=== PATIENT | female | born 1960 | race African-American/Black ===

== ENCOUNTER 2018-06-21 07:56 | Emergency (ER) | payer OTHER ==
--- NOTE | 2018-06-21 08:04 | PDOC ---
History of Present Illness - General Stated Complaint: THROAT PAIN Time Seen by Provider: 06/21/18 08:04 - History of Present Illness Initial Comments: 06/21/18 08:04 Ms. Benitez is a 58 yo female w/ pmh of HTN, GERD, and DM who presents for evaluation of 2-3 day history of left sided chest pain. Patient additionally reports difficulty sleeping last night and that she woke up from a dream with epigastric pain and throat pain. Patient has previously had episodes of palpitations for which she has been evaluated with a holter monitor with no acute findings. The patient denies shortness of breath, headache and dizziness. Denies fever, chills, nausea, vomit, diarrhea and constipation. Denies dysuria, frequency, urgency and hematuria. Allergies: NKDA Past History - Past Medical History Allergies/Adverse Reactions: Allergies Allergy/AdvReac Type Severity Reaction Status Date / Time No Known Allergies Allergy Verified 06/21/18 07:58 Home Medications: Ambulatory Orders Amlodipine Besylate 40 mg PO DAILY 06/21/18 Hydrochlorothiazide [Hctz -] 12.5 mg PO DAILY 06/21/18 Lisinopril [Prinivil] 20 mg PO DAILY 06/21/18 Review of Systems - Review of Systems Comments:: 06/21/18 08:04 GENERAL/CONSTITUTIONAL: No fever or chills. No weakness. HEAD, EYES, EARS, NOSE AND THROAT: +Throat pain x1 day. No change in vision. No ear pain or discharge. CARDIOVASCULAR: +Left sided constant chest pain. No shortness of breath RESPIRATORY: No cough, wheezing, or hemoptysis. GASTROINTESTINAL: +Epigastric pain as described. No nausea, vomiting, diarrhea or constipation. GENITOURINARY: No dysuria, frequency, or change in urination. MUSCULOSKELETAL: No joint or muscle swelling or pain. No neck or back pain. SKIN: No rash NEUROLOGIC: No headache, vertigo, loss of consciousness, or change in strength/ sensation. ENDOCRINE: No increased thirst. No abnormal weight change HEMATOLOGIC/LYMPHATIC: No anemia, easy bleeding, or history of blood clots. ALLERGIC/IMMUNOLOGIC: No hives or skin allergy. *Physical Exam - Physical Exam Comments: 06/21/18 08:05 GENERAL: Awake, alert, and fully oriented, in no acute distress HEAD: No signs of trauma, normocephalic, atraumatic EYES: PERRLA, EOMI, sclera anicteric, conjunctiva clear ENT: Auricles normal inspection, hearing grossly normal, nares patent, oropharynx clear without exudates. Moist mucosa NECK: Normal ROM, supple, no lymphadenopathy, JVD, or masses LUNGS: No distress, speaks full sentences, clear to auscultation bilaterally HEART: +Mild tachycardia. Regular rhythm, normal S1 and S2, no murmurs, rubs or gallops, peripheral pulses normal and equal bilaterally. ABDOMEN: +Epigastric TTP. Soft, normoactive bowel sounds. No guarding, no rebound. No masses EXTREMITIES: Normal inspection, Normal range of motion, no edema. No clubbing or cyanosis. NEUROLOGICAL: Cranial nerves II through XII grossly intact. Normal speech, normal gait, no focal sensorimotor deficits SKIN: Warm, Dry, normal turgor, no rashes or lesions noted. ED Treatment Course - LABORATORY CBC & Chemistry Diagram: 06/21/18 08:40 06/21/18 08:40 Medical Decision Making - Medical Decision Making 06/21/18 08:37 Ms. Benitez is a 58 yo female w/ pmh as described who presents for evaluation of chest pain complicated by epigastric and throat pain concerning for GERD vs. ACS. Will evaluate with monitor/EKG/cardiac labs and medicate for symptomatic relief. 06/21/18 08:39 EKG mildly tachy at rate of 97, otherwise regular rhythm, normal access, normal interval, no ST elevations or depressions - normal EKG. 06/21/18 10:43 Patient reporting relief from symptoms following pepcid and maalox. Suspect GERD as etiology of symptoms. Labs grossly wnl as below. Discharging to home w/ instructions to f/u w/ PCP for further evaluation. Patient verbalized understanding and agreement and will comply. Laboratory Results - last 24 hr 06/21/18 06/21/18 06/21/18 08:40 08:40 08:40 WBC 4.8 RBC 4.30 Hgb 13.1 Hct 39.1 MCV 90.9 MCH 30.5 MCHC 33.6 RDW 12.6 Plt Count 210 MPV 10.5 Absolute Neuts (auto) 2.7 Neutrophils % 57.4 Lymphocytes % 34.1 Monocytes % 7.4 Eosinophils % 0.8 Basophils % 0.3 Nucleated RBC % 0 PT with INR 11.40 INR 1.01 Sodium 144 Potassium 3.6 Chloride 107 Carbon Dioxide 27 Anion Gap 10 BUN 11 Creatinine 0.9 Creat Clearance w eGFR > 60 Random Glucose 158 H Calcium 9.4 Total Bilirubin 0.8 AST 15 ALT 24 Alkaline Phosphatase 74 Creatine Kinase 81 Troponin I < 0.02 Total Protein 8.1 Albumin 4.0 Urine Color Urine Appearance Urine pH Ur Specific Greenback Urine Protein Urine Glucose (UA) Urine Ketones Urine Blood Urine Nitrite Urine Bilirubin Urine Urobilinogen Ur Leukocyte Esterase 06/21/18 09:02 WBC RBC Hgb Hct MCV MCH MCHC RDW Plt Count MPV Absolute Neuts (auto) Neutrophils % Lymphocytes % Monocytes % Eosinophils % Basophils % Nucleated RBC % PT with INR INR Sodium Potassium Chloride Carbon Dioxide Anion Gap BUN Creatinine Creat Clearance w eGFR Random Glucose Calcium Total Bilirubin AST ALT Alkaline Phosphatase Creatine Kinase Troponin I Total Protein Albumin Urine Color Ltyellow Urine Appearance Slcloudy Urine pH 8.0 Ur Specific Greenback 1.005 Urine Protein Negative Urine Glucose (UA) Negative Urine Ketones Negative Urine Blood Negative Urine Nitrite Negative Urine Bilirubin Negative Urine Urobilinogen Negative Ur Leukocyte Esterase Negative *DC/Admit/Observation/Transfer Diagnosis at time of Disposition: Atypical chest pain GERD (gastroesophageal reflux disease) Qualifiers: Esophagitis presence: esophagitis presence not specified Qualified Code(s): K21.9 - Gastro-esophageal reflux disease without esophagitis - Discharge Dispostion Disposition: HOME - Referrals - Patient Instructions Printed Discharge Instructions: DI for Gastroesophageal Reflux Disease (GERD), DI for Atypical Chest Pain Additional Instructions: You were evaluated today in the ER for your chest and epigastric pain. No acute findings were seen at this time and your pain improved with treatment of reflux. Please follow-up with primary care provider in 1-2 days for further evaluation. Return to ER if any return of pain, fever, chills, or other concerning symptoms. - Post Discharge Activity
[2018-06-21 08:06] VITALS: BMI 23.7
--- NOTE | 2018-06-21 08:24 | PDOC ---
Attending Attestation - Resident Resident Name: Valdez Munoz - ED Attending Attestation I have performed the following: I have examined & evaluated the patient, The case was reviewed & discussed with the resident, I agree w/resident's findings & plan, Exceptions are as noted - HPI HPI: 06/21/18 10:49 58 yo female w/ pmh of HTN, GERD, and DM who presents for evaluation of 2-3 day history of left sided chest pain. Pain is nonexertional intermittent no exacerbating or alleviating factors no associated dizziness lightheadedness nausea. Patient has had this pain intermittently over the last 2 years has seen cardiology for and has had a catheterization in the past which was normal per the patient She has recently followed up with gastroenterology for further evaluation of this had a normal endoscopy and is scheduled next week for a ultrasound ROS: A complete review of 10 out of 10 review of systems is taken and is negative apart from what is previously mentioned below and in the HPI. - Physicial Exam PE: 06/21/18 10:50 Vitals: Triage Vital signs reviewed General Appearance: no acute distress, well nourished well developed, Head: Atraumatic, Neck: Supple;No Nucal rigidity Chest Wall: Nontender Cardiac: Regular rate and rhythym, no murmurs, no rubs, no gallops, Lungs: Clear to auscultation bilateral, good air movement bilaterally, Abdomen: Soft, non distended, normal bowel sounds, non tender to palpation Extremities: Full range of motion to all extremities, no cyanosis, clubbing, or edema Skin: Warm and dry, no rashes or lesions, no rash, no petechiae - Medical Decision Making 06/21/18 10:51 Atypical chest discomfort chronic no acute changes heart score to EKG nonischemic troponin negative Patient has follow-up. Feels better after Pepcid Sitting comfortably in the emergency department eating a sandwich. Findings, need for follow-up and strict return instructions discussed with patient. Heart Score/ECG Review - History History: Slightly suspicious - Electrocardiogram EKG: Normal - Age Age: 45-65 - Risk Factors Risk Factors Heart Score: Yes Hx Hypertension, Yes Hx Diabetes Based on the list above the patient has:: 1-2 risk factors - Troponin Troponin: </= normal limit - Score Heart Score - Total: 2 - ECG Impressions Comment:: 06/21/18 10:52 EKG performed at 8:10 AM. Demonstrates normal sinus rhythm MO interval 2 or 2, QRS 76, QTC 429. No ST elevations. No T-wave inversions. Interpreted by me.
[2018-06-21] MEDS ORDERED: FAMOTIDINE 20 MG/50 ML IVPB 20 MG/50 ML MG IVPB ONE ×2 (08:30→08:51)
[2018-06-21] MEDS ORDERED: MAG HYDROX/AL HYDROX/SIMETH 30 ML UNIT-DOSE CUP PO ONE (08:30)
[2018-06-21 08:47] LABS: BASO % 0.3 % (0-2.0); EOS % 0.8 % (0-4.5); HEMATOCRIT 39.1 % (32.4-45.2); HEMOGLOBIN 13.1 GM/dL (10.7-15.3); LYMPH % 34.1 % (8-40); MCH 30.5 pg (25.7-33.7); MCHC 33.6 g/dl (32.0-36.0); MEAN CELL VOLUME 90.9 fl (80-96); MEAN PLT VOLUME 10.5 fl (7.5-11.1); MONO % 7.4 % (3.8-10.2); NEUT % 57.4 % (42.8-82.8); PLATELET COUNT 210 K/MM3 (134-434); RDW 12.6 % (11.6-15.6); WHITE BLOOD COUNT 4.8 K/mm3 (4.0-10.0)
[2018-06-21] MEDS ORDERED: MAG HYDROX/AL HYDROX/SIMETH 30 ML UNIT-DOSE CUP ONE (08:50)
[2018-06-21 09:08] LABS: INR 1.01 (0.83-1.09); PROTHROMBIN TIME (PATIENT) 11.4 SEC (9.7-13.0)
[2018-06-21 09:16] LABS: URINE APPEARANCE SLCLOUDY; URINE BILIRUBIN NEGATIVE (<2.0 mg/dL); URINE COLOR LTYELLOW; URINE GLUCOSE (UA) NEGATIVE (NEGATIVE); URINE KETONE NEGATIVE (NEGATIVE); URINE LEUK ESTERASE NEGATIVE (NEGATIVE); URINE NITRITE NEGATIVE (NEGATIVE); URINE PROTEIN NEGATIVE (NEGATIVE); URINE UROBILINOGEN NEGATIVE mg/dL (0.2-1.0)
[2018-06-21 09:17] LABS: ANION GAP 10 MMOL/L (8-16); BILIRUBIN,TOTAL 0.8 mg/dL (0.2-1.0); BLOOD UREA NITROGEN 11 mg/dL (7-18); CALCIUM 9.4 mg/dL (8.5-10.1); CHLORIDE 107 mmol/L (98-107); CO2 27 mmol/L (21-32); CREATININE 0.9 mg/dL (0.55-1.02); GLUCOSE,RANDOM 158 mg/dL (74-106); POTASSIUM 3.6 mmol/L (3.5-5.1); SGOT/AST 15 U/L (15-37); SGPT/ALT 24 U/L (12-78); SODIUM 144 mmol/L (136-145); TOT PROT 8.1 g/dl (6.4-8.2)
[2018-06-21 09:19] LABS: ALK PHOS 74 U/L (45-117)
[2018-06-21 11:03] VITALS: BP 129/84; PULSE 79; TEMP 98.6
--- NOTE | 2018-06-21 13:43 | EKG ---
Test Reason : Blood Pressure : / mmHG Vent. Rate : 097 BPM Atrial Rate : 097 BPM P-R Int : 202 ms QRS Dur : 076 ms QT Int : 338 ms P-R-T Axes : 053 055 053 degrees QTc Int : 429 ms NORMAL SINUS RHYTHM POSSIBLE LEFT ATRIAL ENLARGEMENT NONSPECIFIC T WAVE ABNORMALITY ABNORMAL ECG NO PREVIOUS ECGS AVAILABLE Confirmed by MICHAEL NOYOLA MD ([id number]) on 06/21/2018 1:43:18 PM Referred By: Confirmed By:MICHAEL NOYOLA MD
== END 2018-06-21 11:03 | disposition home or self-care (01) ==
LOC: JER 07:56
PROC: 3E033GC Introduction of Other Therapeutic Substance into Peripheral Vein, Percutaneous Approach (ICD-10-PCS; principal; 2018-06-21)
DX: K21.9 Gastro-esophageal reflux disease without esophagitis (principal); R07.89 Other chest pain; I10 Essential (primary) hypertension
CPT/HCPCS: 36415; 71046-TC-FY; 80053; 81003; 82550; 84484; 85025; 85610; 87086; 93005; 93010; 99284-25

== ENCOUNTER 2018-07-20 08:09 | Day surgery (SDC) | payer OTHER ==
[2018-07-19 15:02] VITALS: BMI 23.7
[~2018-07-20 08:09] MED LIST: BUPIVACAINE HCL/PF 0.5% (5MG/ML) 10 ML VIAL IJ ONE; ceFAZolin SODIUM 1 GM VIAL IVPB ONE
[2018-07-20] MEDS ORDERED: BUPIVACAINE HCL/PF 0.5% (5MG/ML) 10 ML VIAL ONE (09:00)
--- NOTE | 2018-07-20 10:30 | HP ---
History & Physical Update - History History: No Change - Physical Physical: No Change - Assessment Assessment: No Change - Plan Plan: No Change (H & P done on 07/12/18)
[2018-07-20] MEDS ORDERED: MIDAZOLAM HCL 2 MG/2 ML SINGLE DOSE VIAL ONE (10:38)
[2018-07-20] MEDS ORDERED: LIDOCAINE HCL/PF 2% SDV 5ML VIAL ONE (10:53)
[2018-07-20] MEDS ORDERED: fentaNYL CITRATE 250 MCG/5 ML VIAL ONE (10:54)
[2018-07-20] MEDS ORDERED: ROCURONIUM BROMIDE 50 MG/5 ML VIAL ONE (10:55)
[2018-07-20] MEDS ORDERED: ESMOLOL HCL 100,000 MCG/10 ML VIAL ONE (11:11)
[2018-07-20] MEDS ORDERED: ceFAZolin SODIUM 1 GM VIAL IVPB ONE (11:12)
[2018-07-20] MEDS ORDERED: BUPIVACAINE HCL/PF 0.5% (5MG/ML) 10 ML VIAL IJ ONE ×2 (11:19)
[2018-07-20] MEDS ORDERED: ACETAMINOPHEN INJECTION 100 ML IVPB ONE (11:44)
[2018-07-20] MEDS ORDERED: ACETAMINOPHEN 1000 MG/100 ML VIAL (NON FORMULARY) IVPB ONE (11:46)
[2018-07-20] MEDS ORDERED: NEOSTIGMINE METHYLSULFATE 0.5 MG/ML - 10 ML MDV ONE (11:47)
[2018-07-20] MEDS ORDERED: GLYCOPYRROLATE 0.2 MG/1 ML VIAL ONE (11:48)
[2018-07-20] MEDS ORDERED: KETOROLAC TROMETHAMINE 30 MG/1 ML VIAL ONE (11:54)
--- NOTE | 2018-07-20 12:15 | OP ---
Operative Note - Note: Operative Date: 07/20/18 Pre-Operative Diagnosis: Chronic cholecystitis Operation: Laparoscopic cholecystectomy, JOSE ANTONIO Findings: Intra-abdominal adhesions and GB with small stones Post-Operative Diagnosis: Other (Intra-abdominal adhesions) Surgeon: Helder Santos Public Services Librarian: Jimena Craig Anesthesia: General Specimens Removed: GB Estimated Blood Loss (mls): 5 Operative Report Dictated: Yes
--- NOTE | 2018-07-20 12:45 | SURG ---
Surgery Tube Man Note Tube Man: Jimena Craig PA-C (Suzy) Date of Service: 07/20/18 Diagnosis: Chronic cholecystitis Procedure: Laparoscopic cholecystectomy, lysis of adhesions I was present for the entirety of the operative procedure. For further detail, please refer to operative report. Visit type - Case Type Case Type: Scheduled - Emergency Emergency Visit: No - New patient This patient is new to me today: Yes Date on this admission: 07/20/18 - Critical Care Critical Care patient: No
[2018-07-20] MEDS ORDERED: PROMETHAZINE HCL 25 MG/1 ML VIAL IVPB PRN (12:46)
[2018-07-20] MEDS ORDERED: ONDANSETRON 4 MG/2 ML VIAL IVPUSH PRN (12:46)
[2018-07-20] MEDS ORDERED: oxyCODONE HCL 5 MG TABLET PO PRN ×2 (12:46)
[2018-07-20] MEDS ORDERED: LACTATED RINGERS SOLUTION 1,000 ML IV SCH (13:00)
[2018-07-20] MEDS ORDERED: ONDANSETRON 4 MG/2 ML VIAL ONE (14:27)
--- NOTE | 2018-07-20 16:33 | OP ---
DATE OF OPERATION: 07/20/2018 LOCATION: Ambulatory surgery. PROCEDURE: Laparoscopic cholecystectomy and lysis of adhesions. PREOPERATIVE DIAGNOSIS: Chronic cholecystitis with cholelithiasis. POSTOPERATIVE DIAGNOSIS: Chronic cholecystitis with cholelithiasis and intraabdominal adhesions. SURGEON: Helder Santos M.D. PIT RECORDER: Sameer Shanks ANESTHESIA: General endotracheal anesthesia. FINDINGS AND PROCEDURE: This is a 58-year-old female who presents with chronic right upper quadrant pain radiating to the back which initially she was treated for H. pylori infection; however, the pain persisted, so patient an ultrasound was done and revealed gallbladder stones versus sludge. So patient was advised removal of the gallbladder, and consent was obtained after discussing the risks, benefits, and alternatives to the procedure. Patient was brought to the operating room and placed in supine position. General endotracheal anesthesia was then administered. The abdomen was then prepped and draped in the usual sterile fashion; using 0.5% Marcaine local anesthesia was administered to the proposed incision sites. The peritoneal cavity was entered using the Optiview technique via 5-mm umbilical incision. Using a 5-mm, 0-degree scope, inserted in 5-mm Optiview port. Pneumoperitoneum was established. The patient was then placed in reverse Trendelenburg, left side down position. An 11-mm subxiphoid port was inserted and two 5-mm subcostal ports were also inserted under direct vision. Dense adhesions of the liver to the posterior abdominal wall were noted. These were taken down using the hook dissector connected to monopolar cautery. Gallbladder fundus was identified and grasped and retracted superiorly. The infundibulum was identified, and at this point the common bile duct was noted to be adherent to the proximal gallbladder wall. Careful dissection using combined dissector and peanut dissector was done until the common bile duct was clearly away from the gallbladder wall and exposing the triangle of Calot. Cystic duct and cystic artery were identified and were carefully isolated using the hook dissector. Critical view of safety was established by making a window behind the cystic artery, gallbladder, wall, and liver bed with common bile duct clearly visualized medial to the critical view of safety. The cystic duct was then clipped at 3 points followed by transection 2 branches of the cystic artery were also clipped at 3 points followed by transection leaving 2 clips at the branches of the cystic artery. The gallbladder was dissected from its bed in antegrade fashion using the hook dissector. After this was completed, the gallbladder was placed in endobag and extracted via the subxiphoid incision. The gallbladder bed was carefully inspected and was noted to be free of active bleeding. The pneumoperitoneum was evacuated, and the ports were removed. Wounds were closed with subcuticular Biosyn 4 sutures reinforced with Dermabond. The patient was successfully extubated and transferred to the post anesthesia care unit in satisfactory condition. Estimated blood loss was about 5 mL. Wound class clean, contaminated. The patient received 1 g Ancef prior to the procedure. Penelope [id number]
[2018-07-20 17:57] VITALS: BP 120/76; PULSE 90; TEMP 97.8
--- NOTE | 2018-07-23 16:43 | PATH ---
Surgical Pathology Report Patient Name: DAE KASPER [facility]. Rec. #: [id number] /Age/Gender: 1960 (Age: 58) / F Account: [id number] Location: [facility] SUR[facility]ICAL Taken: 07/20/2018 Received: 07/20/2018 Reported: 07/23/2018 Physicians: Helder Santos M.D. Specimen(s) Received GALLBLADDER Clinical History Chronic cholecystitis Final Diagnosis GALLBLADDER, CHOLECYSTECTOMY: CHRONIC CHOLECYSTITIS AND CHOLELITHIASIS. Electronically Signed Francesca Hdez M.D. Gross Description Received in formalin, labeled "gallbladder," is a 7.5 x 2.6 x 2.4 cm. gallbladder with a 0.2 cm. in length portion of cystic duct attached. The outer surface is jung-barker and varies from smooth to shaggy. The lumen contains green, tenacious bile as well as multiple black, irregular choleliths ranging from 0.4-0.5 cm in greatest dimension. The mucosa is brown with focal erosions. The wall of the gallbladder measures 0.1 cm. in thickness. Automation/Controls Manager sections are submitted in one cassette. DL/07/20/2018 saudi07/20/2018
== END 2018-07-20 17:30 | disposition home or self-care (01) ==
LOC: JASU-SURG 08:09
PROVIDERS: ATTEND Surgery
PROC: 0FT44ZZ Resection of Gallbladder, Percutaneous Endoscopic Approach (ICD-10-PCS; principal; 2018-07-20 10:00)
DX: K80.10 Calculus of gallbladder with chronic cholecystitis without obstruction (principal); K66.0 Peritoneal adhesions (postprocedural) (postinfection)
CPT/HCPCS: 88304-TC; 94760; J0131

== ENCOUNTER 2018-07-22 09:04 | Emergency (ER) | payer OTHER ==
[2018-07-22 09:16] VITALS: BMI 23.7
[2018-07-22] MEDS ORDERED: SODIUM CHLORIDE 0.9% 500 ML INFUS.BAG IV ONE (10:32)
[2018-07-22] MEDS ORDERED: ACETAMINOPHEN 1000 MG/100 ML VIAL (NON FORMULARY) IVPB ONE (10:32)
[2018-07-22] MEDS ORDERED: ONDANSETRON 4 MG/2 ML VIAL IVPUSH ONE (10:38)
--- NOTE | 2018-07-22 10:40 | PDOC ---
History of Present Illness - General Chief Complaint: Pain, Acute Stated Complaint: ABDOMINA PAIN/BACK PAIN Time Seen by Provider: 07/22/18 09:36 History Source: Patient Exam Limitations: No Limitations - History of Present Illness Travel History: No Initial Comments: Leona is a 58 yo female w/ a pmh of recent Lap pretty 2 days prior, 2 abdominal operations 8 and 9 years ago (partial hysterectomy, then oopherectomy), HTN, GERD, and DM who presents to the ED with abdominal distension, nausea, vomiting (NBNB) and not having been able to make a bowel movement or pass any flatus since her surgery. She has been taking 1-2 percocets a day for pain control, but it has not been sufficient. She also reports having some mild throat discomfort. She denies chest pain, shortness of breath, difficulty breathing, fevers, chills , infections, or any urinary complaints. PCP: Roseann Nguyen Allergies: NKA, NKDA Social Hx: Denies using cigarettes, alcohol, or other illicit drugs. Past History - Past Medical History Allergies/Adverse Reactions: Allergies Allergy/AdvReac Type Severity Reaction Status Date / Time No Known Allergies Allergy Verified 07/22/18 09:11 Home Medications: Ambulatory Orders Amlodipine Besylate 40 mg PO DAILY 06/21/18 Hydrochlorothiazide [Hctz -] 12.5 mg PO DAILY 06/21/18 Lisinopril [Prinivil] 20 mg PO DAILY 06/21/18 Oxycodone HCl/Acetaminophen [Percocet 5-325 mg Tablet] 1 - 2 tab PO Q6H #12 tab MDD 5 07/20/18 Enema Bag, Disposable [Enema Bag] 1 each RC PRN #7 each 07/22/18 Ondansetron HCl [Zofran] 4 mg PO PRN #14 tablet 07/22/18 COPD: No Diabetes: Yes (no meds) HTN: Yes - Immunization History Immunization Up to Date: No - Suicide/Smoking/Psychosocial Hx Smoking History: Never smoked Have you smoked in the past 12 months: No Hx Alcohol Use: No Drug/Substance Use Hx: No Substance Use Type: None Hx Substance Use Treatment: No Review of Systems - Review of Systems Able to Perform ROS?: Yes Is the patient limited Slovak proficient: No Constitutional: Yes: Loss of Appetite. No: Chills, Diaphoresis, Fever HEENTM: Yes: Throat Pain. No: Blurred Vision Respiratory: No: Cough, Shortness of Breath, Productive cough Cardiac (ROS): No: Chest Pain, Lightheadedness, Palpitations ABD/GI: Yes: Abdominal Distended, Constipated, Nausea, Poor Appetite, Vomiting. No: Diarrhea : No: Burning, Dysuria, Discharge, Frequency Musculoskeletal: No: Back Pain, Joint Swelling, Muscle Pain Integumentary: No: Bruising, Change in Color Neurological: No: Headache, Seizure, Weakness Psychiatric: No: Anxiety, Depression Endocrine: No: Excessive Sweating, Intolerance to Cold, Intolerance to Heat Hematologic/Lymphatic: No: Anemia, Blood Clots, Easy Bleeding *Physical Exam - Vital Signs Last Vital Signs Temp Pulse Resp BP Pulse Ox 98.8 F 90 18 129/83 98 07/22/18 09:11 07/22/18 09:11 07/22/18 09:11 07/22/18 09:11 07/22/18 09:11 - Physical Exam General Appearance: Yes: Nourished, Appropriately Dressed. No: Apparent Distress HEENT: positive: EOMI, LING, Normal ENT Inspection, Normal Voice, Pharynx Normal Neck: positive: Trachea midline, Supple. negative: Decreased range of motion, Lymphadenopathy (R), Lymphadenopathy (L) Respiratory/Chest: positive: Lungs Clear, Normal Breath Sounds. negative: Respiratory Distress, Crackles, Rales, Rhonchi Cardiovascular: positive: Regular Rhythm, Regular Rate, S1, S2. negative: Edema , JVD, Murmur Vascular Pulses: Dorsalis-Pedis (R): 2+, Doralis-Pedis (L): 2+ Gastrointestinal/Abdominal: positive: Soft, Increased Bowel Sounds, Distended. negative: Decreased BS, Guarding, Rebound Lymphatic: negative: Adenopathy Musculoskeletal: positive: Normal Inspection. negative: CVA Tenderness, Decreased Range of Motion, Vertebral Tenderness Extremity: positive: Normal Capillary Refill, Normal Inspection, Normal Range of Motion Integumentary: positive: Normal Color, Dry, Warm. negative: Jaundice, Rash Neurologic: positive: pulp roller II-XII NML intact, Fully Oriented, Alert, Normal Mood/ Affect ED Treatment Course - LABORATORY CBC & Chemistry Diagram: 07/22/18 11:30 07/22/18 11:30 - RADIOLOGY Radiology Studies Ordered: Category Date Time Status ABDOMEN FLAT & UPRIGHT [RAD] Stat Radiology 07/22/18 10:31 Ordered Medical Decision Making - Medical Decision Making Leona is a 58 yo female w/ a pmh of recent Lap pretty 2 days prior, 2 abdominal operations 8 and 9 years ago (partial hysterectomy, then oopherectomy), HTN, GERD, and DM who presents to the ED with abdominal distension, nausea, vomiting (NBNB) and not having been able to make a bowel movement or pass any flatus since her surgery. She has been taking 1-2 percocets a day for pain control, but it has not been sufficient. -percs can be causing constipation. DD includes but not limited to: SBO vs paralytic ileus, postop infection, gastroenteritis, constipation, ACS, pancreatitis. Plan: Cbc, Cmp, lactic, lipase, trop, ua/uc, Ekg, CTAP, IVF-NS, zofran, Acetaminophen, re-assess. Cbc showed no elevated WBC CMP showed low potassium - we repleted. other labs unremarkable. CTAP showed no SBO but likely paralytic ileus. Patient felt significantly better after meds, fluids, and was requesting to have food so she could eat. PO challenge succesful. Consulted her surgeon Dr. Santos who requested her to get a fleet enema. VS stable, patient feels well and would like to leave the ED. Will discharge with strict return precautions. *DC/Admit/Observation/Transfer Diagnosis at time of Disposition: Paralytic ileus - Discharge Dispostion Disposition: HOME Condition at time of disposition: Stable Decision to Admit order: No - Prescriptions Prescriptions: Enema Bag, Disposable [Enema Bag] 1 each RC PRN #7 each Ondansetron HCl [Zofran] 4 mg PO PRN #14 tablet - Referrals Referrals: Roseann Nguyen MD [Primary Care Provider] - - Patient Instructions Printed Discharge Instructions: DI for Ileus Additional Instructions: You came into the ER with nausea vomiting and not having passed a bowel movement in the past 2 days. We gave you some IV hydration, anti nausea meds. Your Cat Scan showed that your bowels is not obstructed. We believe you have what is called a paralytic ileus - see attached handout for further explanation. We are sending an enema to your pharmacy. please go pick it up. We are also sending zofran to your pharmacy to help with nausea. Please make sure to pick it up. Please come back to the ER if your abdominal pain worsens, your develop a high fever, start vomiting or have any other new or worsening concerns. Thank you for coming to the [facility] ER. We hope you feel better soon! Print Language: KAZAKH - Post Discharge Activity
[2018-07-22] MEDS ORDERED: ONDANSETRON 4 MG/2 ML VIAL ONE (10:57)
[2018-07-22] MEDS ORDERED: ACETAMINOPHEN INJECTION 100 ML IVPB ONE (10:57)
--- NOTE | 2018-07-22 11:04 | PDOC ---
Attending Attestation - Resident Resident Name: Yunior Hudson - ED Attending Attestation I have performed the following: I have examined & evaluated the patient, The case was reviewed & discussed with the resident, I agree w/resident's findings & plan - HPI HPI: 07/22/18 13:52 Ms. Benitez is a 58 yo female w/ pmh of HTN, GERD, and DM, recent chronic cholecystitis s/p cholecystectomy on 07/20/18, now with nausea, vomiting and Abdominal pain for the past 2 days. She reports that she has had 2 episodes of vomiting, nonbloody and nonbilious. She notes that her last bowel movement occured prior to her surgery and has not had a bowel movement for 2 days. + passing gas. She describes her abdominal pain as localized near her epigastric region, 5/10, over the incisional scars, ranging from mild to moderate. She reports a 5/10 in severity. The patient denies chest pain, shortness of breath, headache and dizziness. Denies fever, chills, diarrhea. Allergies: None Past surgical history: Cholecystectomy Social History: No alcohol, tobacco or drug use reported 07/22/18 13:57 - Physicial Exam PE: 07/22/18 13:52 NAD, well appearing, MMM, nl conjunctiva, anicteric; neck supple. lungs clear, RRR, abdomen soft and (+) tender at incisional sites in RUQ/epigastrium, (+) Anterior laproscopic surgical scars, no purulence. No rebound or guarding, no CVAT. BELTRAN x4, no focal neuro deficits. No peripheral edema. normal color for ethnicity, WWP. - Medical Decision Making 07/22/18 13:53 I, Sandee Garcia MD, attest that this document has been prepared under my direction and personally reviewed by me in its entirety. I further attest, that it accurately reflects all work, treatment, procedures and medical decision -making performed by me. Ms. Benitez is a 58 yo female w/ pmh of HTN, GERD, and DM, recent chronic cholecystitis presenting with post op AP, over incisional scars, n/v and constipation x 2 days, post op for uncomplicated lap pretty with Dr Santos on . +passing gas. DDx. post op ileus, perf viscus, intra abdominal injury/infection, abscess, abdominal wall abscess, PUD, GERD, esophageal spasm, SBO, medication side effect , electrolyte/metabolic derangements, pancreatitis, hepatitis. dehydration. UTI vitals wnl. labs and lytes wnl, borderline low potassium 3.4. LFTs/lipase normal. UA neg for ketones or infection trop neg, EKG nonischemic, nonspecific T wave abnormalities, similar to prior episodes given IVF, analgesia and antiemetics. pepcid IV. CT a/p: ileus, no obstruction or hernia. free air in setting of recent lap pretty surgery and post op course, otherwise abdomen without peritoneal findings. on reexam feels improved, remains well appearing, no acute events in the ED spoke with Dr. Santos, primary surgeon, agree with plan, bowel regimen, stable with dc and close followup discussed with patient, agrees with discharge, bowel regimen, has stool softeners at home, fiber diet, hydration, adequate rest and Dr. Santos surgery followup return precautions discussed CT scan and labs reviewed. DC in stable condition. 07/22/18 14:12 Heart Score/ECG Review - ECG Impressions Comment:: 07/22/18 13:57 EKG normal sinus rhythm, no interval abnormalities, narrow QRS, ST and T wave segments and morphology normal. Nonspecific T wave abnormalities
[2018-07-22 11:36] LABS: BASO % 0.3 % (0-2.0); EOS % 0.4 % (0-4.5); HEMATOCRIT 39.7 % (32.4-45.2); HEMOGLOBIN 13.2 GM/dL (10.7-15.3); LYMPH % 29.5 % (8-40); MCH 30.6 pg (25.7-33.7); MCHC 33.2 g/dl (32.0-36.0); MEAN CELL VOLUME 92.1 fl (80-96); MONO % 10.1 % (3.8-10.2); NEUT % 59.7 % (42.8-82.8); PLATELET COUNT 250 K/MM3 (134-434); WHITE BLOOD COUNT 5.8 K/mm3 (4.0-10.0)
[2018-07-22 12:06] LABS: ALBUMIN 3.9 g/dl (3.4-5.0); ALK PHOS 77 U/L (45-117); ANION GAP 4 MMOL/L (8-16); BILIRUBIN,TOTAL 0.9 mg/dL (0.2-1); BLOOD UREA NITROGEN 13 mg/dL (7-18); CALCIUM 9.4 mg/dL (8.5-10.1); CHLORIDE 102 mmol/L (98-107); CO2 33 mmol/L (21-32); GLUCOSE,RANDOM 125 mg/dL (74-106); LIPASE 124 U/L (73-393); POTASSIUM 3.4 mmol/L (3.5-5.1); SGOT/AST 17 U/L (15-37); SGPT/ALT 30 U/L (13-61); SODIUM 139 mmol/L (136-145); TOT PROT 8.2 g/dl (6.4-8.2)
[2018-07-22 12:16] LABS: URINE APPEARANCE CLEAR; URINE BILIRUBIN NEGATIVE (<2.0 mg/dL); URINE COLOR COLORLESS; URINE GLUCOSE (UA) NEGATIVE (NEGATIVE); URINE KETONE NEGATIVE (NEGATIVE); URINE LEUK ESTERASE NEGATIVE (NEGATIVE); URINE NITRITE NEGATIVE (NEGATIVE); URINE PROTEIN NEGATIVE (NEGATIVE); URINE UROBILINOGEN NEGATIVE mg/dL (0.2-1.0)
[2018-07-22] MEDS ORDERED: POTASSIUM CHLORIDE TABS 20 MEQ TABLET.ER (FP) PO ONE ×2 (12:26→12:48)
[2018-07-22] MEDS ORDERED: FAMOTIDINE 20 MG/50 ML IVPB 20 MG/50 ML MG IVPB ONE (13:56)
[2018-07-22 14:48] VITALS: BP 118/74; PULSE 74; TEMP 98.4
--- NOTE | 2018-07-23 10:45 | EKG ---
Test Reason : Blood Pressure : / mmHG Vent. Rate : 071 BPM Atrial Rate : 071 BPM P-R Int : 180 ms QRS Dur : 076 ms QT Int : 346 ms P-R-T Axes : 054 044 -01 degrees QTc Int : 375 ms NORMAL SINUS RHYTHM T WAVE ABNORMALITY, CONSIDER ANTERIOR ISCHEMIA ABNORMAL ECG WHEN COMPARED WITH ECG OF 21-JUN-2018 08:10, NO SIGNIFICANT CHANGE WAS FOUND Confirmed by KYLEE SHAH MD ([id number]) on 07/23/2018 10:44:49 AM Referred By: Confirmed By:KYLEE SHAH MD
== END 2018-07-22 14:30 | disposition home or self-care (01) ==
LOC: JER 09:04
PROC: 3E033GC Introduction of Other Therapeutic Substance into Peripheral Vein, Percutaneous Approach (ICD-10-PCS; principal; 2018-07-22)
PROC: 3E033GC Introduction of Other Therapeutic Substance into Peripheral Vein, Percutaneous Approach (ICD-10-PCS; 2018-07-22)
PROC: 3E033NZ Introduction of Analgesics, Hypnotics, Sedatives into Peripheral Vein, Percutaneous Approach (ICD-10-PCS; 2018-07-22)
DX: K56.0 Paralytic ileus (principal); Z98.890 Other specified postprocedural states; E87.6 Hypokalemia; I10 Essential (primary) hypertension; E11.9 Type 2 diabetes mellitus without complications; K21.9 Gastro-esophageal reflux disease without esophagitis
CPT/HCPCS: 36415; 74177-TC; 80053; 81003; 83605; 83690; 84484; 85025; 87086; 93005; 93010; 96365; 96375; 99282-25; J0131

== ENCOUNTER 2018-11-22 04:56 | Emergency (ER) | payer OTHER ==
[2018-11-22 05:09] VITALS: BMI 23.6
[2018-11-22 06:21] LABS: BASO % 0.4 % (0-2.0); EOS % 0.7 % (0-4.5); HEMATOCRIT 37.9 % (32.4-45.2); LYMPH % 24.5 % (8-40); MCH 31.6 pg (25.7-33.7); MCHC 34.2 g/dl (32.0-36.0); MEAN CELL VOLUME 92.3 fl (80-96); MEAN PLT VOLUME 9.6 fl (7.5-11.1); MONO % 5.9 % (3.8-10.2); NEUT % 68.5 % (42.8-82.8); PLATELET COUNT 226 K/MM3 (134-434); RBC 4.11 M/mm3 (3.60-5.2); RDW 12.7 % (11.6-15.6)
[2018-11-22 07:10] LABS: ANION GAP 7 MMOL/L (8-16); BLOOD UREA NITROGEN 11 mg/dL (7-18); CHLORIDE 103 mmol/L (98-107); CO2 30 mmol/L (21-32); GLUCOSE,RANDOM 230 mg/dL (74-106); POTASSIUM 3.7 mmol/L (3.5-5.1); SODIUM 139 mmol/L (136-145)
[2018-11-22 07:11] LABS: ALBUMIN 3.9 g/dl (3.4-5.0); ALK PHOS 69 U/L (45-117); SGOT/AST 13 U/L (15-37); SGPT/ALT 22 U/L (13-61); TOT PROT 7.5 g/dl (6.4-8.2)
[2018-11-22 08:11] LABS: INR 0.98 (0.83-1.09); PROTHROMBIN TIME (PATIENT) 11.6 SEC (9.7-13.0)
--- NOTE | 2018-11-22 08:16 | PDOC ---
Attending Attestation - HPI HPI: 11/22/18 09:54 The patient is a 58 year old female with a significant past medical history of HTN, GERD, DM off medication, s/p CCY in Jul 2018, who presents to the ED with complaint of intermittent chest palpitations and substernal pain occurring when waking from sleep for about a year. The patient states she was prompted to come to the ED because she recorded her BP to be slightly elevated at home. She denies SOB, dizziness, JAY. She denies urinary changes. She denies changes in BMs. She denies fevers, chills, n/v/d. PMD: Roseann Nguyen [employer] Chair: Valentín Barlow - Physicial Exam PE: 11/22/18 10:48 Vitals: Triage vital signs reviewed General Appearance: No acute distress, well nourished, well developed Head: Atraumatic Eyes: Pupils equal reactive round, extraocular movement intact Neck: Supple; No nuchal rigidity Chest Wall: Nontender Cardiac: Regular rate and rhythm, no murmurs, no rubs, no gallops Lungs: Clear to auscultation bilateral, good air movement bilaterally Abdomen: Soft, nondistended, normal bowel sounds, nontender to palpation Extremities: Full range of motion to all extremities, no cyanosis, clubbing, or edema Skin: Warm and dry, no rashes or lesions, no rash, no petechiae Neuro: AOX3; Cranial Nerves 2-12 grossly intact, Strength intact to all extremities, Sensation intact to all extremities, gait normal <Sosa Caballero - Last Filed: 11/22/18 10:48> - Resident Resident Name: Brice Daniels - ED Attending Attestation I have performed the following: I have examined & evaluated the patient, The case was reviewed & discussed with the resident, I agree w/resident's findings & plan, Exceptions are as noted - Medical Decision Making 11/22/18 11:54 The patient is a 58 year old female with a significant past medical history of HTN, GERD, DM off medication, s/p CCY in Jul 2018, who presents to the ED with complaint of intermittent chest palpitations and substernal pain occurring when waking from sleep for about a year. The patient states she was prompted to come to the ED because she recorded her BP to be slightly elevated at home. She denies SOB, dizziness, JAY. She denies urinary changes. She denies changes in BMs. She denies fevers, chills, n/v/d. PMD: Roseann Nguyen [employer] Chair: Valentín Barlow Atypical chest discomfort troponin negative 2. Heart score 3. EKG unchanged from previous performed at 534 demonstrates normal sinus rhythm no ST elevations isolated T-wave inversions in leads V3 V4 V5 old Interpreted by me Patient feels better after GI cocktail palpitations may be GI in etiology recommend follow-up with her PCP as well as gastroenterology she'll return to the ED for any severe worsening symptoms or for any concerns. Findings, the need for follow-up and strict return instructions discussed with patient. <Jarrett Montgomery - Last Filed: 11/22/18 11:55> Heart Score/ECG Review - History History: Slightly suspicious - Electrocardiogram EKG: Non specific repolarization disturbance - Age Age: 45-65 - Risk Factors Risk Factors Heart Score: Yes Hx Hypertension, Yes Hx Diabetes Based on the list above the patient has:: 1-2 risk factors - Troponin Troponin: </= normal limit - Score Heart Score - Total: 3 <Jarrett Montgomery - Last Filed: 11/22/18 11:55> Attestations - Attestations 11/22/18 09:57 Documentation prepared by Sosa Caballero, acting as medical reimbursement manager for Jarrett Montgomery MD <Sosa Caballero - Last Filed: 11/22/18 10:48>
[2018-11-22] MEDS ORDERED: FAMOTIDINE 20 MG/50 ML IVPB 20 MG/50 ML MG IVPB ONE ×2 (08:17→08:22)
[2018-11-22] MEDS ORDERED: PANTOPRAZOLE 40 MG TABLET (FP) PO ONE (08:17)
[2018-11-22] MEDS ORDERED: PANTOPRAZOLE 40 MG TABLET (FP) ONE (08:22)
--- NOTE | 2018-11-22 08:40 | PDOC ---
History of Present Illness - General Chief Complaint: Chest Pain Stated Complaint: CHEST PAIN Time Seen by Provider: 11/22/18 07:40 History Source: Patient Exam Limitations: No Limitations - History of Present Illness Initial Comments: Patient is a 58 y/o F w/ PMHx HTN, GERD, DM off medication, s/p CCY in Jul 2018 , p/w > 1 year intermittent chest palpitations and substernal pain occurring when waking from sleep and at other times w/o predictable inciting circumstances. Her repairer typewriter is aware of and managing this issue. Patient also took home BP measurements and was concerned they were higher than usual, prompting ED visit. Denies other complaints. At time of encounter vitals are stable, BP 152/91, glucose 230 (Pt reports going off diabetes medications during the past year), otherwise wnl. Initial troponin negative. EKG showing anterior lead t-wave changes improved from last known EKG in July, otherwise reassuring. PMD: Roseann Nguyen Rd Manager: Valentín Barlow 11/22/18 08:35 Past History - Travel Traveled outside of the country in the last 30 days: No Close contact w/someone who was outside of country & ill: No - Past Medical History Allergies/Adverse Reactions: Allergies Allergy/AdvReac Type Severity Reaction Status Date / Time No Known Allergies Allergy Verified 11/22/18 05:08 Home Medications: Ambulatory Orders Amlodipine Besylate 40 mg PO DAILY 06/21/18 Hydrochlorothiazide [Hctz -] 12.5 mg PO DAILY 06/21/18 Lisinopril [Prinivil] 40 mg PO DAILY 06/21/18 Aspirin [ASA -] 81 mg PO DAILY 11/22/18 Famotidine [Pepcid] 20 mg PO PRN 11/22/18 COPD: No Diabetes: Yes HTN: Yes - Immunization History Immunization Up to Date: No - Suicide/Smoking/Psychosocial Hx Smoking History: Never smoked Have you smoked in the past 12 months: No Information on smoking cessation initiated: No Hx Alcohol Use: No Drug/Substance Use Hx: No Substance Use Type: None Hx Substance Use Treatment: No Review of Systems - Review of Systems Comments:: As per HPI 11/22/18 08:40 *Physical Exam - Vital Signs Last Vital Signs Temp Pulse Resp BP Pulse Ox 97.6 F 79 18 152/91 100 11/22/18 05:08 11/22/18 05:08 11/22/18 05:08 11/22/18 05:08 11/22/18 05:08 - Physical Exam Comments: Gen: A&Ox3, NAD HEENT: NC/AT, PERRLA, EOMI, MMM Neck: supple, NT, no LAD, no JVD CV: RRR no m/r/g Resp: CTA b/l Abd: +bs, soft, NT, ND Ext: 2+ pulses, wwp, no edema, no calf tenderness Neuro: review analyst, motor, sensory systems w/o focal deficit Psych: normal mood, normal affect Skin: warm, dry, normal turgor 11/22/18 08:40 Moderate Sedation - Procedure Monitoring Vital Signs: Procedure Monitoring Vital Signs Temperature 97.6 F 11/22/18 05:08 Pulse Rate 79 11/22/18 05:08 Respiratory Rate 18 11/22/18 05:08 Blood Pressure 152/91 11/22/18 05:08 O2 Sat by Pulse Oximetry (%) 100 11/22/18 05:08 ED Treatment Course - LABORATORY CBC & Chemistry Diagram: 11/22/18 05:55 11/22/18 05:55 - ADDITIONAL ORDERS Additional order review: Laboratory Results 11/22/18 11/22/18 05:55 05:55 PT with INR 11.60 INR 0.98 Sodium 139 Potassium 3.7 Chloride 103 Carbon Dioxide 30 Anion Gap 7 L BUN 11 Creatinine 1.0 Creat Clearance w eGFR 57.35 Random Glucose 230 H Calcium 9.0 Total Bilirubin 1.0 AST 13 L ALT 22 Alkaline Phosphatase 69 Creatine Kinase 83 Troponin I < 0.02 Total Protein 7.5 Albumin 3.9 11/22/18 05:55 RBC 4.11 MCV 92.3 MCHC 34.2 RDW 12.7 MPV 9.6 Neutrophils % 68.5 Lymphocytes % 24.5 Monocytes % 5.9 Eosinophils % 0.7 Basophils % 0.4 Medical Decision Making - Medical Decision Making Will obtain second troponin, treat with PTX and pepcid, discharge for PMD and cardiology f/u if repeat troponin is negative. 11/22/18 08:42 Second troponin negative, will d/c as per above. 11/22/18 09:52 *DC/Admit/Observation/Transfer Diagnosis at time of Disposition: Atypical chest pain - Discharge Dispostion Disposition: HOME Condition at time of disposition: Stable - Referrals Referrals: Roseann Nguyen MD [Non Staff, Medical] - Valentín Barlow MD [Staff Physician] - - Patient Instructions Printed Discharge Instructions: DI for Atypical Chest Pain Additional Instructions: You were evaluated for chest pain and palpitations. Lab work and EKG demonstrated no acute cardiac problems. Your blood sugar was found to be elevated, consistent with not having recent medical treatment of your diabetes. Please follow up at your earliest opportunity with your primary medical doctor and repairer typewriter. If you have recurrent or worsening chest pain, develop shortness of breath, develop swelling, lose consciousness, have new focal weakness or changes in sensation, or any other new or concerning symptoms, please return to the Emergency Department. - Post Discharge Activity
[2018-11-22 09:13] VITALS: BP 131/84; PULSE 76; TEMP 98.4
--- NOTE | 2018-11-22 16:42 | EKG ---
Test Reason : Blood Pressure : / mmHG Vent. Rate : 085 BPM Atrial Rate : 085 BPM P-R Int : 186 ms QRS Dur : 080 ms QT Int : 360 ms P-R-T Axes : 069 088 -05 degrees QTc Int : 428 ms NORMAL SINUS RHYTHM T WAVE ABNORMALITY, CONSIDER ANTERIOR ISCHEMIA ABNORMAL ECG WHEN COMPARED WITH ECG OF 22-JUL-2018 11:30, NO SIGNIFICANT CHANGE WAS FOUND Confirmed by DENNYS VAUGHN, MICHAEL ([id number]) on 11/22/2018 4:42:48 PM Referred By: Confirmed By:MICHAEL NOYOLA MD
== END 2018-11-22 10:18 | disposition home or self-care (01) ==
LOC: JER 04:56
PROC: 3E033GC Introduction of Other Therapeutic Substance into Peripheral Vein, Percutaneous Approach (ICD-10-PCS; principal; 2018-11-22)
DX: R07.89 Other chest pain (principal); I10 Essential (primary) hypertension; E11.9 Type 2 diabetes mellitus without complications; K21.9 Gastro-esophageal reflux disease without esophagitis
CPT/HCPCS: 36415; 71046-TC-FY; 80053; 82550; 84484; 85025; 85610; 93005; 93010; 99285-25

== ENCOUNTER 2019-02-06 09:46 | Emergency (ER) | payer OTHER ==
[2019-02-06 09:54] VITALS: BP 161/94; PULSE 94; TEMP 98; BMI 23.6
--- NOTE | 2019-02-06 10:47 | PDOC ---
History of Present Illness - General Chief Complaint: Blood Pressure Problem Stated Complaint: HYPERTENSION Time Seen by Provider: 02/06/19 10:17 History Source: Patient - History of Present Illness Timing/Duration: 1 week Past History - Past Medical History Allergies/Adverse Reactions: Allergies Allergy/AdvReac Type Severity Reaction Status Date / Time No Known Allergies Allergy Verified 02/06/19 09:54 Home Medications: Ambulatory Orders Amlodipine Besylate 40 mg PO DAILY 06/21/18 Hydrochlorothiazide [Hctz -] 12.5 mg PO DAILY 06/21/18 Lisinopril [Prinivil] 40 mg PO DAILY 06/21/18 Aspirin [ASA -] 81 mg PO DAILY 11/22/18 Famotidine [Pepcid] 20 mg PO PRN 11/22/18 COPD: No Diabetes: Yes HTN: Yes - Immunization History Immunization Up to Date: No - Suicide/Smoking/Psychosocial Hx Smoking History: Never smoked Have you smoked in the past 12 months: No Information on smoking cessation initiated: No Hx Alcohol Use: No Drug/Substance Use Hx: No Substance Use Type: None Hx Substance Use Treatment: No Review of Systems - Review of Systems Constitutional: No: Chills, Fever Respiratory: No: Shortness of Breath Cardiac (ROS): No: Chest Pain Neurological: No: Headache, Dizziness *Physical Exam - Vital Signs Last Vital Signs Temp Pulse Resp BP Pulse Ox 98 F 94 H 18 161/94 98 02/06/19 09:52 02/06/19 09:52 02/06/19 09:52 02/06/19 09:52 02/06/19 09:52 - Physical Exam General Appearance: Yes: Appropriately Dressed. No: Apparent Distress HEENT: positive: Normal Voice Neck: positive: Supple Respiratory/Chest: negative: Respiratory Distress Integumentary: positive: Dry, Warm Neurologic: positive: Fully Oriented, Alert, Normal Mood/Affect Medical Decision Making - Medical Decision Making 02/06/19 10:42 58 yo F, h/o HTN, on meds, here for concern regarding her blood pressure. States BP has recently been in the 160s systolic at home despite taking her meds. Denies JAY, dizziness, visual changes, CP or SOB See exam Elevated BP Compliant w/ meds Asx from BP standpoint -dc w/ pmd f/u for evaluation/management of her BP *DC/Admit/Observation/Transfer Diagnosis at time of Disposition: Elevated blood pressure reading - Discharge Dispostion Disposition: HOME Condition at time of disposition: Good - Referrals - Patient Instructions Printed Discharge Instructions: How to Monitor Your Blood Pressure at Home Additional Instructions: Your blood pressure here is 161/94 here Please follow up with your PMD for further management - Post Discharge Activity
== END 2019-02-06 11:01 | disposition home or self-care (01) ==
LOC: JER 09:46
DX: I10 Essential (primary) hypertension (principal)
CPT/HCPCS: 99281-25

== ENCOUNTER 2019-08-14 15:43 | Emergency (ER) | payer OTHER ==
[2019-08-14 15:51] VITALS: BMI 24.2
--- NOTE | 2019-08-14 16:05 | PDOC ---
Rapid Medical Evaluation Time Seen by Provider: 08/14/19 15:47 Medical Evaluation: Allergies Allergy/AdvReac Type Severity Reaction Status Date / Time No Known Allergies Allergy Verified 02/06/19 09:54 08/14/19 15:48 Pt c/o: epigastric pain since yesterday radiating to shoulders Pt on brief exam: vss, no reproducible CP, epigastric tenderness Pt ordered for: labs, ekg, toradol, protonix, Pt to proceed to the ED Discharge Disposition - Diagnosis Epigastric abdominal pain - Discharge Dispostion Disposition: HOME Condition at time of disposition: Improved - Prescriptions Prescriptions: Esomeprazole Magnesium [Nexium 24Hr] 20 mg PO DAILY #30 capsule.dr - Referrals Referrals: [facility] [place] [Provider Group] Ethan Last MD [Staff Physician] - - Patient Instructions Printed Discharge Instructions: DI for Gastroesophageal Reflux Disease (GERD) Additional Instructions: You were seen and evaluated in the [facility] ED for your abdominal/chest pain. Your symptoms were consistent with GERD and deadly causes of chest pain were ruled out. A prescription for Nexium has been sent to your pharmacy. Take this as directed for the next 30 days. Continue to take Tylenol (Acetaminophen) for pain as needed. Try using Maalox, Pepcid, or Zantac for burning pain that could be GERD (heartburn) to see if those help your symptoms resolve. All of these medications are available over the counter at your pharmacy and should be taken as needed according to the package instructions. Avoid NSAIDs (Ibuprofen) given your history of GERD as NSAIDs can be hard on your stomach lining - you can take them occasionally along with food. Please follow up with your Primary Care Doctor in the next week. If you do not have one, call to schedule an appointment at the provided clinic ([place]) for ongoing care and further evaluation. Also please call the provided GI physician , Dr. Last, to arrange follow up for your GERD symptoms. Return to the ED for any new or concerning symptoms including but not limited to : worsening pain non-responsive to pain medication, nausea or vomiting preventing you from taking water or medications by mouth, anything else that you find concerning. - Post Discharge Activity
[2019-08-14] MEDS ORDERED: PANTOPRAZOLE SODIUM 40 MG VIAL IVPUSH ONE (16:07)
[2019-08-14] MEDS ORDERED: KETOROLAC TROMETHAMINE 30 MG/1 ML VIAL IVPUSH ONE (16:07)
[2019-08-14] MEDS ORDERED: KETOROLAC TROMETHAMINE 30 MG/1 ML VIAL ONE (16:11)
[2019-08-14] MEDS ORDERED: PANTOPRAZOLE SODIUM 40 MG VIAL ONE (16:12)
--- NOTE | 2019-08-14 16:26 | PDOC ---
History of Present Illness - General Chief Complaint: Pain Stated Complaint: STOMACH PAIN Time Seen by Provider: 08/14/19 15:47 History Source: Patient Exam Limitations: No Limitations - History of Present Illness Initial Comments: 08/14/19 16:24 Source: Patient PMD: Roseann Nguyen Clin Tech: Valentín Barlow HPI: 59yo F with PMH HTN, GERD, DM, s/p CCY in Jul 2018, > 1 year intermittent chest palpitations and substernal pain occurring when waking from sleep and at other times w/o predictable inciting circumstances (cardiology aware), presenting with epigastric pain for two days. Pain started gradually in the LUQ/ Epigastrium, radiated upwards, and was burning in nature. She reports this is consistent with prior pains for which she has been evaluated. She tried taking ibuprofen at home without relief. Unable to remember if there is an association with meals. Of note, patient returned on a flight from [place] on 07/29, denies unilateral leg swelling or pain, smoking, estrogen medications, history of cancer, prior clots, palpitations, or shortness of breath. No fevers, chills, productive cough, n/v/c/d. E provided patient with GI cocktail which she reports has improved her symptoms. All: NKDA Meds: per chart PMH: as above PSH: as above Past History - Travel Traveled outside of the country in the last 30 days: Yes If so, where?: [place] Close contact w/someone who was outside of country & ill: No - Past Medical History Allergies/Adverse Reactions: Allergies Allergy/AdvReac Type Severity Reaction Status Date / Time No Known Allergies Allergy Verified 08/14/19 15:51 Home Medications: Ambulatory Orders Amlodipine Besylate 40 mg PO DAILY 06/21/18 Hydrochlorothiazide [Hctz -] 25 mg PO DAILY 06/21/18 Lisinopril [Prinivil] 40 mg PO DAILY 06/21/18 Aspirin [ASA -] 81 mg PO DAILY 11/22/18 COPD: No Diabetes: Yes HTN: Yes - Immunization History Immunization Up to Date: No - Psycho Social/Smoking Cessation Hx Smoking History: Never smoked Have you smoked in the past 12 months: No Information on smoking cessation initiated: No Hx Alcohol Use: No Drug/Substance Use Hx: No Substance Use Type: None Hx Substance Use Treatment: No Review of Systems - Review of Systems Able to Perform ROS?: Yes Is the patient limited Kyrgyz proficient: Yes Constitutional: No: Chills, Diaphoresis, Fever HEENTM: No: Recent change in vision, Nose Congestion, Throat Pain Respiratory: Yes: Cough (for 1 week, resovled). No: Shortness of Breath, SOB with Exertion, SOB at Rest, Wheezing, Productive cough, Hemoptysis Cardiac (ROS): Yes: Chest Pain (radiating upward from epigastrium ), Palpitations (occasionally, non recently). No: Irregular Heart Rate, Lightheadedness, Syncope, Chest Tightness ABD/GI: No: Constipated, Diarrhea, Nausea, Rectal Bleeding, Vomiting : No: Burning, Dysuria, Frequency, Pain Musculoskeletal: No: Muscle Pain, Muscle Weakness Integumentary: No: Change in Color, Pruritus, Rash Neurological: No: Headache, Numbness, Tingling, Weakness Psychiatric: No: Stressors, Mood Swings, Change in Appetite Endocrine: No: Symptoms Reported, Increased Thirst, Increased Urine, Change in Weight Hematologic/Lymphatic: No: Symptoms Reported, Anemia, Blood Clots, Easy Bleeding All Other Systems: Reviewed and Negative *Physical Exam - Vital Signs Last Vital Signs Temp Pulse Resp BP Pulse Ox 98.1 F 87 17 157/57 L 99 08/14/19 15:48 08/14/19 15:48 08/14/19 15:48 08/14/19 15:48 08/14/19 15:48 - Physical Exam Comments: 08/14/19 17:17 Vitals reviewed, AFVSS with hypertension to 146/84 WDWN woman, appears stated age, no acute distress, laying in hospital bed comfortably EOMI, MMM, NCAT, PERRL, normal morphologies RRR, nls1s2, no murmurs appreciated CTABL, normal WOB, no wheezes / rales / rhonchi, no cough during 30 minutes of encounter Soft, nontender, nondistended 2+ radial and PT pulses WWP, no clubbing / cyanosis / edema Alert and oriented, CN grossly intact, MAEE Heart Score/ECG Review - History History: Slightly suspicious - Electrocardiogram EKG: Normal - Age Age: 45-65 - Risk Factors Risk Factors Heart Score: Yes Hx Hypertension, Yes Hx Diabetes Based on the list above the patient has:: 1-2 risk factors - Troponin Troponin: </= normal limit - Score Heart Score - Total: 2 ED Treatment Course - LABORATORY CBC & Chemistry Diagram: 08/14/19 16:20 08/14/19 16:20 Medical Decision Making - Medical Decision Making 08/14/19 17:21 59yo F with PMH HTN, GERD, DM, s/p CCY in Jul 2018, > 1 year intermittent chest palpitations and substernal pain occurring when waking from sleep and at other times w/o predictable inciting circumstances (cardiology aware), presenting with epigastric pain for two days. History notable for midline, upward radiating , burning pain relieved by GI cocktail from [facility]. Physical exam unremarkable aside from mild hypertension - notably no tachypnea or tachycardia. Cannot PERC patient, Well's Score 0. Patient has a history of chest pains without ultimately explanation, will send D-Dimer given recent long flight. DDX: most likely GERD, r/o ACS, less likely PE, MSK pain, costochondritis, PTX, pancreatitis. Patient will be instructed to avoid NSAIDs, try GI medications for pain given history of GERD. -CBC, CMP, Lipase, Cardiac Profile, Coags and D-Dimer -EKG, CXR, Monitor -Toradol and Protonix given by [facility] provider to good effect 08/14/19 17:43 -Coags pending, other labs unremarkable including negative troponin and lipase -EKG: Normal rate, rhythm, axis, no ST changes or other concerning morphologies , T wave flattening vs inversion in V4/V5 c/w prior EKG Dispo: Likely home 08/14/19 18:44 -Coags and D-dimer WNL -CXR without PTX, consolidation, effusion, infiltrate, with normal cardiac silhouette and mediastinum, no acute fractures -Given Maalox 30cc PO RX Nexium, GI f/u Dispo: Home Discharge - Discharge Information Problems reviewed: Yes Clinical Impression/Diagnosis: Epigastric abdominal pain Condition: Improved Disposition: HOME - Admission No - Follow up/Referral Referrals: [facility] [place] [Provider Group] Ethan Last MD [Staff Physician] - - Patient Discharge Instructions Patient Printed Discharge Instructions: DI for Gastroesophageal Reflux Disease (GERD) Additional Instructions: You were seen and evaluated in the [facility] ED for your abdominal/chest pain. Your symptoms were consistent with GERD and deadly causes of chest pain were ruled out. A prescription for Nexium has been sent to your pharmacy. Take this as directed for the next 30 days. Continue to take Tylenol (Acetaminophen) for pain as needed. Try using Maalox, Pepcid, or Zantac for burning pain that could be GERD (heartburn) to see if those help your symptoms resolve. All of these medications are available over the counter at your pharmacy and should be taken as needed according to the package instructions. Avoid NSAIDs (Ibuprofen) given your history of GERD as NSAIDs can be hard on your stomach lining - you can take them occasionally along with food. Please follow up with your Primary Care Doctor in the next week. If you do not have one, call to schedule an appointment at the provided clinic ([place]) for ongoing care and further evaluation. Also please call the provided GI physician , Dr. Last, to arrange follow up for your GERD symptoms. Return to the ED for any new or concerning symptoms including but not limited to : worsening pain non-responsive to pain medication, nausea or vomiting preventing you from taking water or medications by mouth, anything else that you find concerning. - Post Discharge Activity
[2019-08-14 16:45] LABS: BASO % 0.2 % (0-2.0); EOS % 2.9 % (0-4.5); HEMATOCRIT 37.4 % (32.4-45.2); HEMOGLOBIN 12.5 GM/dL (10.7-15.3); LYMPH % 33.2 % (8-40); MCHC 33.4 g/dl (32.0-36.0); MEAN CELL VOLUME 92.9 fl (80-96); MEAN PLT VOLUME 10.2 fl (7.5-11.1); MONO % 8.6 % (3.8-10.2); NEUT % 55.1 % (42.8-82.8); PLATELET COUNT 242 K/MM3 (134-434); RBC 4.03 M/mm3 (3.60-5.2); RDW 12.8 % (11.6-15.6); WHITE BLOOD COUNT 7.8 K/mm3 (4.0-10.0)
[2019-08-14 16:57] VITALS: TEMP 98
[2019-08-14 17:13] LABS: ALBUMIN 3.8 g/dl (3.4-5.0); BILIRUBIN,TOTAL 0.7 mg/dL (0.2-1); BLOOD UREA NITROGEN 19.1 mg/dL (7-18); CREATININE 1.1 mg/dL (0.55-1.3); POTASSIUM 3.7 mmol/L (3.5-5.1); TOT PROT 7.4 g/dl (6.4-8.2)
[2019-08-14 17:45] LABS: INR 0.97 (0.83-1.09); PROTHROMBIN TIME (PATIENT) 11.4 SEC (9.7-13.0)
[2019-08-14] MEDS ORDERED: MAG HYDROX/AL HYDROX/SIMETH 30 ML UNIT-DOSE CUP PO ONE (18:38)
--- NOTE | 2019-08-14 18:50 | PDOC ---
Attending Attestation - Resident Resident Name: Carlos Rivas - ED Attending Attestation I have performed the following: I have examined & evaluated the patient, The case was reviewed & discussed with the resident, I agree w/resident's findings & plan, Exceptions are as noted - HPI HPI: 08/14/19 18:45 59 F HTN, GERD, DM, cholecystectomy, presenting to ED with 3 days of epigastric pain. Pt states that she ate a heavy meal on Monday and subsequently developed pain in her epigastrum. Denies N/V. States that she took motrin with no relief. Pt denies CP/SOB. Denies diarrhea/constipation. States that the pain was particularly bad today after eating. - Physicial Exam PE: 08/14/19 18:47 "GENERAL: Awake, alert, and fully oriented, in no acute distress. HEAD: No signs of trauma EYES: PERRLA, EOMI, sclera anicteric, conjunctiva clear ENT: Auricles normal inspection, hearing grossly normal, nares patent, oropharynx clear without exudates. Moist mucosa NECK: Nontender, no stepoffs, Normal ROM, supple, no lymphadenopathy, JVD, or masses LUNGS: Breath sounds equal, clear to auscultation bilaterally. No wheezes, and no crackles HEART: Regular rate and rhythm, normal S1 and S2, no murmurs, rubs or gallops ABDOMEN: + epigastric TTP, normoactive bowel sounds. No guarding, no rebound. No masses EXTREMITIES: Normal range of motion, no edema. No clubbing or cyanosis. No cords, erythema, or tenderness NEUROLOGICAL: Cranial nerves II through XII intact. 5/5 strength and sensation in all extremities, Normal speech, normal gait, normal cerebellar function SKIN: Warm, Dry, normal turgor, no rashes or lesions noted. - Medical Decision Making 08/14/19 18:47 59 F with intermittent epigastric pain x 3 days. EKG unchanged since prior (TWI in V4-V5 unchanged). Exam notable only for epigastric TTP. Pt has had prior cholecystectomy. - Labs, lipase, trop - CXR - GI cocktail 08/14/19 18:50 Labs wnl Trop and lipase negative Pt reassessed - now feels much better Pt is well appearing, with normal vitals. Clinically stable for DC at this time. I discussed the physical exam findings, ancillary test results and final diagnoses with the patient. I answered all of the patient's questions. The patient was satisfied with the care received and felt comfortable with the discharge plan and treatment plan. The patient agrees to follow up with the primary care physician within 24-72 hours.
[2019-08-14] MEDS ORDERED: MAG HYDROX/AL HYDROX/SIMETH 30 ML UNIT-DOSE CUP ONE (19:11)
[2019-08-14 19:23] VITALS: BP 128/81; PULSE 73
--- NOTE | 2019-08-15 12:23 | EKG ---
Test Reason : Blood Pressure : / mmHG Vent. Rate : 074 BPM Atrial Rate : 074 BPM P-R Int : 202 ms QRS Dur : 070 ms QT Int : 376 ms P-R-T Axes : 044 046 058 degrees QTc Int : 417 ms NORMAL SINUS RHYTHM NONSPECIFIC T WAVE ABNORMALITY ABNORMAL ECG WHEN COMPARED WITH ECG OF 22-NOV-2018 05:34, ST ELEVATION NOW PRESENT IN INFERIOR LEADS NONSPECIFIC T WAVE ABNORMALITY, IMPROVED IN INFERIOR LEADS Confirmed by DENNYS VAUGHN, MICHAEL ([id number]) on 08/15/2019 12:23:05 PM Referred By: Confirmed By:MICHAEL NOYOLA MD
== END 2019-08-14 19:23 | disposition home or self-care (01) ==
LOC: JER 15:43
PROC: 3E0333Z Introduction of Anti-inflammatory into Peripheral Vein, Percutaneous Approach (ICD-10-PCS; principal; 2019-08-14)
PROC: 3E033GC Introduction of Other Therapeutic Substance into Peripheral Vein, Percutaneous Approach (ICD-10-PCS; 2019-08-14)
DX: R10.13 Epigastric pain (principal); I10 Essential (primary) hypertension; K21.9 Gastro-esophageal reflux disease without esophagitis; E11.9 Type 2 diabetes mellitus without complications
CPT/HCPCS: 36415; 71045-TC-FY; 80053; 82550; 83690; 84484; 85025; 85379; 85610; 85730; 93005; 93010; 96374; 96375; 99284-25

== ENCOUNTER 2019-12-03 16:19 | Emergency (ER) | payer OTHER ==
[2019-12-03 16:25] VITALS: TEMP 98.6; BMI 24.7
[2019-12-03] MEDS ORDERED: MAG HYDROX/AL HYDROX/SIMETH -MYLANTA- ORAL SUSPENSION PO ONE (16:26)
[2019-12-03] MEDS ORDERED: SODIUM CHLORIDE 1,000 ML IV STA (16:26)
[2019-12-03] MEDS ORDERED: FAMOTIDINE 20 MG/50 ML IVPB 20 MG/50 ML MG IVPB ONE ×2 (16:26→18:27)
[2019-12-03] MEDS ORDERED: ACETAMINOPHEN 1000 MG/100 ML VIAL (NON FORMULARY) IVPB ONE (16:27)
--- NOTE | 2019-12-03 16:27 | PDOC ---
Rapid Medical Evaluation Medical Evaluation: Allergies Allergy/AdvReac Type Severity Reaction Status Date / Time No Known Allergies Allergy Verified 12/03/19 16:21 12/03/19 16:21 Pt presents for abdominal pain since yesterday. She states it is in the middle of her stomach. She tried taking her protonix at home with no relief of symptoms Exam: Epigastric tenderness Orders: labs, lipase, pepcid/GI cocktail Pt to proceed to the ER for further evaluation Discharge Disposition - Diagnosis Abdominal pain Qualifiers: Abdominal location: epigastric Qualified Code(s): R10.13 - Epigastric pain - Referrals - Patient Instructions - Post Discharge Activity
[2019-12-03 17:59] LABS: HEMOGLOBIN 12.4 GM/dL (10.7-15.3)
[2019-12-03 18:00] LABS: BASO % 0.1 % (0-2.0); EOS % 1.2 % (0-4.5); HEMATOCRIT 37.2 % (32.4-45.2); LYMPH % 44.3 % (8-40); MCH 31.1 pg (25.7-33.7); MCHC 33.4 g/dl (32.0-36.0); MEAN CELL VOLUME 93.1 fl (80-96); MEAN PLT VOLUME 10.6 fl (7.5-11.1); MONO % 8.6 % (3.8-10.2); NEUT % 45.8 % (42.8-82.8); PLATELET COUNT 237 K/MM3 (134-434); RDW 12.7 % (11.6-15.6)
[2019-12-03] MEDS ORDERED: ACETAMINOPHEN INJECTION 100 ML IVPB ONE (18:27)
[2019-12-03] MEDS ORDERED: MAG HYDROX/AL HYDROX/SIMETH 30 ML UNIT-DOSE CUP ONE ×2 (18:27)
--- NOTE | 2019-12-03 18:29 | PDOC ---
History of Present Illness - General Chief Complaint: Pain Stated Complaint: ABD PAIN Time Seen by Provider: 12/03/19 16:28 History Source: Patient Exam Limitations: No Limitations - History of Present Illness Initial Comments: 12/03/19 18:10 59F with a PMH of HTN, GERD, DM, s/p cholecystectomy 07/2018 who presents to the ER for evaluation of epigastric pain. The patient states that she woke up yesterday morning and felt an epigastric discomfort. She describes this discomfort as a pressure, radiating to her back, without exacerbating or alleviating factors, not associated with fever, chills, CP, SOB, nausea, vomiting, diarrhea, constipation. She admits to "some" dysuria without flank pain or discharge. She denies tobacco, alcohol, or illicit drug use. Past History - Past Medical History Allergies/Adverse Reactions: Allergies Allergy/AdvReac Type Severity Reaction Status Date / Time No Known Allergies Allergy Verified 12/03/19 16:21 Home Medications: Ambulatory Orders Amlodipine Besylate 40 mg PO DAILY 06/21/18 Hydrochlorothiazide [Hctz -] 25 mg PO DAILY 06/21/18 Lisinopril [Prinivil] 40 mg PO DAILY 06/21/18 Aspirin [ASA -] 81 mg PO DAILY 11/22/18 Esomeprazole Magnesium [Nexium 24Hr] 20 mg PO DAILY #30 capsule. 08/14/19 Famotidine [Pepcid -] 20 mg PO DAILY #7 tablet 12/03/19 COPD: No Diabetes: Yes HTN: Yes - Immunization History Immunization Up to Date: No - Psycho Social/Smoking Cessation Hx Smoking History: Never smoked Have you smoked in the past 12 months: No Hx Alcohol Use: No Drug/Substance Use Hx: No Substance Use Type: None Hx Substance Use Treatment: No Review of Systems - Review of Systems Able to Perform ROS?: Yes Comments:: 12/03/19 18:37 GENERAL/CONSTITUTIONAL: No fever or chills. No weakness. HEAD, EYES, EARS, NOSE AND THROAT: No change in vision. No ear pain or discharge. No sore throat. CARDIOVASCULAR: No chest pain, palpitations, or lightheadedness. RESPIRATORY: No cough, wheezing, shortness of breath, or hemoptysis. GASTROINTESTINAL: + for abdominal pain. No nausea, vomiting, diarrhea, or constipation. GENITOURINARY: + for dysuria. No frequency, hematuria, or change in urination. MUSCULOSKELETAL: No joint or muscle swelling or pain. No neck or back pain. SKIN: No rash or lesions. NEUROLOGIC: No headache, numbness, tingling, focal weakness, loss of consciousness, or change in strength/sensation. Is the patient limited [place] proficient: No *Physical Exam - Vital Signs Last Vital Signs Temp Pulse Resp BP Pulse Ox 98.6 F 88 16 121/75 89 L 12/03/19 16:21 12/03/19 16:21 12/03/19 16:21 12/03/19 16:21 12/03/19 16:21 - Physical Exam 12/03/19 18:38 GENERAL: Well developed, well nourished. Awake and alert. No acute distress. HEENT: Normocephalic, atraumatic. Hearing grossly normal. Moist mucous membranes. PERRLA, EOMI. No conjunctival pallor. Sclera are non-icteric. NECK: Supple. Full ROM. No JVD. CARDIOVASCULAR: Regular rate and rhythm. No murmurs, rubs, or gallops. PULMONARY: No evidence of respiratory distress. Lungs clear to auscultation bilaterally. No wheezing, rales, or rhonchi. ABDOMINAL: Soft. TTP in epigastrium. No rebound or guarding. GENITOURINARY: No CVA tenderness bilaterally. MUSCULOSKELETAL: Normal range of motion at all joints. No bony deformities or tenderness. EXTREMITIES: No cyanosis. No clubbing. No edema. No calf tenderness or swelling. SKIN: Warm and dry. Normal capillary refill. No rashes. No jaundice. NEUROLOGICAL: Alert, awake, appropriate. Cranial nerves 2-12 grossly intact. Normal speech. Gait is normal without ataxia. PSYCHIATRIC: Cooperative. Good eye contact. Appropriate mood and affect. ED Treatment Course - LABORATORY CBC & Chemistry Diagram: 12/03/19 16:50 12/03/19 16:50 - ADDITIONAL ORDERS Additional order review: 12/03/19 16:50 RBC 4.00 MCV 93.1 MCHC 33.4 RDW 12.7 MPV 10.6 Neutrophils % 45.8 Lymphocytes % 44.3 H D Monocytes % 8.6 Eosinophils % 1.2 Basophils % 0.1 Medical Decision Making - Medical Decision Making 12/03/19 18:41 59F with MMP who presents with epigastric pain concerning for pancreatitis, gastritis, PUD, ACS, PNA. Obtaining labs and imaging. Giving symptomatic GI relief. 12/03/19 19:10 Pt signed out to Dr. Collins for further evaluation. CBC, CMP WNL. Lipase and troponin negative. UA negative. Discharge - Discharge Information Problems reviewed: Yes Clinical Impression/Diagnosis: GERD (gastroesophageal reflux disease) Abdominal pain Qualifiers: Abdominal location: epigastric Qualified Code(s): R10.13 - Epigastric pain Condition: Improved Disposition: HOME - Additional Discharge Information Prescriptions: Famotidine [Pepcid -] 20 mg PO DAILY #7 tablet - Follow up/Referral Referrals: Roseann Nguyen MD [Primary Care Provider] - - Patient Discharge Instructions Patient Printed Discharge Instructions: DI for Dyspepsia Additional Instructions: Come back to the emergency department for any new, worsening or concerning symptoms. Follow up with your primary care physician within 3-4 days. - Post Discharge Activity
[2019-12-03 18:31] LABS: ALBUMIN 3.8 g/dl (3.4-5.0); ALK PHOS 74 U/L (45-117); ANION GAP 7 MMOL/L (8-16); BILIRUBIN,TOTAL 0.8 mg/dL (0.2-1); BLOOD UREA NITROGEN 17.1 mg/dL (7-18); CALCIUM 8.8 mg/dL (8.5-10.1); CHLORIDE 100 mmol/L (98-107); CO2 31 mmol/L (21-32); CREATININE 1.1 mg/dL (0.55-1.3); GLUCOSE,RANDOM 194 mg/dL (74-106); LIPASE 209 U/L (73-393); POTASSIUM 3.3 mmol/L (3.5-5.1); SGOT/AST 13 U/L (15-37); SGPT/ALT 22 U/L (13-61); SODIUM 138 mmol/L (136-145); TOT PROT 7.8 g/dl (6.4-8.2)
[2019-12-03 18:46] LABS: EPI CELLS 0.7 /HPF (0-5/HPF); HYALINE CASTS 0 /lpf (0-8); URINE APPEARANCE CLEAR; URINE BACTERIA 4.4 /hpf (NEGATIVE); URINE BILIRUBIN NEGATIVE (NEGATIVE); URINE COLOR YELLOW; URINE GLUCOSE (UA) NEGATIVE (NEGATIVE); URINE KETONE NEGATIVE (NEGATIVE); URINE LEUK ESTERASE TRACE (NEGATIVE); URINE NITRITE NEGATIVE (NEGATIVE); URINE PROTEIN NEGATIVE (NEGATIVE); URINE RBC 0 /hpf (0-4); URINE UROBILINOGEN 0.2 mg/dL (0.2-1.0); URINE WBC 0 /hpf (0-5)
--- NOTE | 2019-12-03 20:57 | PDOC ---
*Physical Exam - Vital Signs Last Vital Signs Temp Pulse Resp BP Pulse Ox 98.6 F 88 16 121/75 89 L 12/03/19 16:21 12/03/19 16:21 12/03/19 16:21 12/03/19 16:21 12/03/19 16:21 ED Treatment Course - LABORATORY CBC & Chemistry Diagram: 12/03/19 16:50 12/03/19 16:50 - ADDITIONAL ORDERS Additional order review: Laboratory Results 12/03/19 12/03/19 16:50 16:50 Sodium 138 Potassium 3.3 L Chloride 100 Carbon Dioxide 31 Anion Gap 7 L BUN 17.1 Creatinine 1.1 Est GFR (CKD-EPI)AfAm 64.54 Est GFR (CKD-EPI)NonAf 55.69 Random Glucose 194 H Calcium 8.8 Total Bilirubin 0.8 AST 13 L ALT 22 Alkaline Phosphatase 74 Creatine Kinase 103 Troponin I < 0.02 Total Protein 7.8 Albumin 3.8 Lipase 209 Urine Color Yellow Urine Appearance Clear Urine pH 8.0 Ur Specific Innis 1.004 L Urine Protein Negative Urine Glucose (UA) Negative Urine Ketones Negative Urine Blood Negative Urine Nitrite Negative Urine Bilirubin Negative Urine Urobilinogen 0.2 Ur Leukocyte Esterase Trace Urine WBC (Auto) 0 Urine RBC (Auto) 0 Urine Casts (Auto) 0 U Epithel Cells (Auto) 0.7 Urine Bacteria (Auto) 4.4 12/03/19 16:50 RBC 4.00 MCV 93.1 MCHC 33.4 RDW 12.7 MPV 10.6 Neutrophils % 45.8 Lymphocytes % 44.3 H D Monocytes % 8.6 Eosinophils % 1.2 Basophils % 0.1 - Medications Given in the ED: ED Medications Discontinued Medications Generic Name Dose Route Start Last Admin Trade Name Freq PRN Reason Stop Dose Admin Acetaminophen 1,000 mg 12/03/19 16:27 12/03/19 18:20 Ofirmev Injection - IVPB 12/03/19 16:28 1,000 mg ONCE ONE Administration Al Hydroxide/Mg Hydroxide 30 ml 12/03/19 16:26 12/03/19 18:25 Mylanta Suspension - PO 12/03/19 16:27 30 ml ONCE ONE Administration Famotidine/Sodium Chloride 20 mg in 50 mls @ 100 mls/hr 12/03/19 16:26 18:30 Pepcid 20 Mg Premixed Ivpb - IVPB 12/03/19 16:55 100 mls/hr ONCE ONE Administration Sodium Chloride 1,000 mls @ 1,000 mls/hr 12/03/19 16:26 12/03/19 18:15 Normal Saline - IV 12/03/19 17:25 1,000 mls/hr ASDIR STA Administration Medical Decision Making - Medical Decision Making 12/03/19 20:55 Patient feels much better. Negative cxr. Ok to go home with pepcid prescription. Discharge - Discharge Information Problems reviewed: Yes Clinical Impression/Diagnosis: GERD (gastroesophageal reflux disease) Abdominal pain Qualifiers: Abdominal location: epigastric Qualified Code(s): R10.13 - Epigastric pain Condition: Improved Disposition: HOME - Admission No - Additional Discharge Information Prescriptions: Famotidine [Pepcid -] 20 mg PO DAILY #7 tablet - Follow up/Referral Referrals: Roseann Nguyen MD [Primary Care Provider] - - Patient Discharge Instructions Patient Printed Discharge Instructions: DI for Dyspepsia Additional Instructions: Come back to the emergency department for any new, worsening or concerning symptoms. Follow up with your primary care physician within 3-4 days. - Post Discharge Activity
[2019-12-03 21:04] VITALS: BP 118/77; PULSE 66
--- NOTE | 2019-12-04 01:39 | PDOC ---
Documentation entered by Karey Hugo SCRIBE, acting as scribe for Peyton Lamar MD. Peyton Lamar MD: This documentation has been prepared by the Bethel garcia Nirvannie, SCRIBE, under my direction and personally reviewed by me in its entirety. I confirm that the documentation accurately reflects all work, treatment, procedures, and medical decision making performed by me. Attending Attestation - Resident Resident Name: Nain Smiley - ED Attending Attestation I have performed the following: I have examined & evaluated the patient, The case was reviewed & discussed with the resident, I agree w/resident's findings & plan, Exceptions are as noted - HPI HPI: 12/03/19 18:47 The patient is a 59 year old female, with a significant past medical history of HTN, GERD, DM, who presents to the emergency department with 2 days of pressure- like epigastric pain. She denies recent chest pain or shortness of breath. Allergies: NKDA Past surgical history: Cholecystectomy (2018) Primary Care Physician: Dr. Nguyen - Physicial Exam PE: 12/03/19 20:27 59 yo female p/w epigastric pain head ncat neck supple lungs ca b/l cvs [id number] abd epigastric tendernesses with palpation, no rebound, no guarding, soft abd extremities no deformities,no venous stasis no flank pain neuro axox3, ambulatory ,motor strength 5/5 b/l - Medical Decision Making 12/04/19 01:37 59-year-old female presenting with epigastric pain x1 day No fever, no nausea vomiting Labs reviewed and are unremarkable Patient given PPIs prescription and discharged follow-up with Dr. Last(who she saw in Sep for similar complaint)
--- NOTE | 2019-12-04 11:16 | EKG ---
Test Reason : Blood Pressure : / mmHG Vent. Rate : 062 BPM Atrial Rate : 062 BPM P-R Int : 190 ms QRS Dur : 070 ms QT Int : 442 ms P-R-T Axes : 062 059 057 degrees QTc Int : 448 ms POOR DATA QUALITY, INTERPRETATION MAY BE ADVERSELY AFFECTED NORMAL SINUS RHYTHM LEFT ATRIAL ENLARGEMENT NONSPECIFIC T WAVE ABNORMALITY ABNORMAL ECG Confirmed by MD BARB, DEB ([id number]) on 12/04/2019 11:16:22 AM Referred By: Confirmed By:DEB DAY MD
== END 2019-12-03 21:13 | disposition home or self-care (01) ==
LOC: JER 16:19
PROC: 3E033GC Introduction of Other Therapeutic Substance into Peripheral Vein, Percutaneous Approach (ICD-10-PCS; principal; 2019-12-03)
PROC: 3E033NZ Introduction of Analgesics, Hypnotics, Sedatives into Peripheral Vein, Percutaneous Approach (ICD-10-PCS; 2019-12-03)
DX: E11.9 Type 2 diabetes mellitus without complications (principal); K21.9 Gastro-esophageal reflux disease without esophagitis; I10 Essential (primary) hypertension; Z90.49 Acquired absence of other specified parts of digestive tract
CPT/HCPCS: 36415; 71046-TC-FY; 80053; 81003; 82550; 83690; 84484; 85025; 87086; 93005; 93010; 99285-25; J0131; J7030